=== PATIENT | male | born 1990 | race Asian ===

== ENCOUNTER 2019-09-12 11:47 | Emergency (ER) | payer OTHER ==
[~2019-09-12] VITALS: Ht 175.3 cm; Wt 84.8 kg
[2019-09-12 13:20] VITALS: BP 132/81; TEMP 98
== END 2019-09-12 13:20 | disposition home or self-care (01) ==
LOC: ED 11:47
DX: S20.212A Contusion of left front wall of thorax, initial encounter (principal); W22.8XXA Striking against or struck by other objects, initial encounter
CPT/HCPCS: 99282

== ENCOUNTER 2020-10-27 06:47 | Emergency (ER) | payer OTHER ==
[~2020-10-27] VITALS: Ht 175.3 cm; Wt 87.1 kg
[2020-10-27 06:50] VITALS: TEMP 98.3
[2020-10-27 08:13] LABS: PLATELET COUNT 256 K/uL (142-355)
[2020-10-27 08:23] LABS: POTASSIUM 3.6 mmol/L (3.6-5.2); SODIUM 138 mmol/L (136-145)
[2020-10-27 08:28] LABS: PARTIAL THROMBOPLASTIN TIME 26.7 SECONDS (24.5-33.6)
[2020-10-27 08:55] VITALS: BP 126/80
== END 2020-10-27 09:28 | disposition home or self-care (01) ==
LOC: ED 06:47
DX: J20.9 Acute bronchitis, unspecified (principal); R09.1 Pleurisy; F17.210 Nicotine dependence, cigarettes, uncomplicated
CPT/HCPCS: 80053; 84484; 85027; 85610; 85730; 93005; 99283